=== PATIENT | female | born 1990 ===

== ENCOUNTER 2021-01-18 22:06 | Emergency (ER) | payer SELFPAY ==
[~2021-01-18] VITALS: Ht 139.7 cm; Wt 51.9 kg
--- NOTE | 2021-01-18 22:46 | NUR ---
PT STATES HAVING PAIN IN HER GENITAL AREA WITH YELLOW/BLOODY DISCHARGE. PT STATES SHE IS 1 WEEKS . PT HAS HAD 3 ABORTIONS AND 2 MISSCARREGES WITH 4 LIVE BIRTHS. PT ADMITS TO DRINKING 3 BOTTLES OF HARD LIQUOR A DAY WELL MARIJUANA AND METH USAGE. AWAITING ERP EVAL
[2021-01-18 23:24] LABS: HCG UR SG 1.024 (1.003-1.030)
[2021-01-18 23:26] LABS: MICROSCOPIC INDICATED
[2021-01-19] MEDS ORDERED: CEFDINIR 300 MG CAPSULE PO ONE
[2021-01-19] MEDS ORDERED: CEFDINIR 300 MG CAPSULE ONE (00:11)
[2021-01-19 00:55] VITALS: BP 122/74
== END 2021-01-19 00:57 | disposition home or self-care (01) ==
LOC: ED 01-19 00:30
DX: N30.00 Acute cystitis without hematuria (principal); R00.0 Tachycardia, unspecified; F17.200 Nicotine dependence, unspecified, uncomplicated
CPT/HCPCS: 81001; 81025; 87077; 87086; 87186; 99283